=== PATIENT | female | born 1960 | race Caucasian/White ===

== ENCOUNTER 2016-06-02 08:49 | Day surgery (SDC) | payer OTHER ==
[2016-05-23 11:03] VITALS: BMI 33.0
--- NOTE | 2016-05-23 11:56 | PAT Medication Instructions ---
Service Date May 23, 2016. Current Home Medication List Anastrozole (Arimidex), 1 MG PO QAM Bosutinib (Bosulif), 100 MG PO BID Carvedilol (Coreg), 6.25 MG PO BID Clonazepam (Klonopin), 2 MG PO BID Fenofibrate (Tricor ), 145 MG PO HS Lisinopril (Zestril), 10 MG PO QAM Metformin Hcl (Glucophage), 500 MG PO QPM Nitroglycerin (Nitrostat), 0.4 MG UT PRN Oxycodone/Acetaminophen 5MG/325MG (Percocet 5MG/325MG), 1 TABLET PO QID Oxygen (Oxygen), 2.5 LITERS NA CONT Prasugrel Hcl (Effient), 10 MG PO QAM Ranitidine (Zantac), 150 MG PO BID Sertraline (Zoloft), 100 MG PO HS Venlafaxine Hcl (Effexor Xr), 1 CAP PO QAM Medication Instructions For Your Scheduled Surgery - Check with surgeon/prescribing physician for instructions: Anastrozole (Arimidex), 1 MG PO QAM Prasugrel Hcl (Effient), 10 MG PO QAM Bosutinib (Bosulif), 100 MG PO BID - Hold the following medications 48 hours prior to surgery: Metformin Hcl (Glucophage), 500 MG PO QPM - Hold the following medications the morning of surgery: Lisinopril (Zestril), 10 MG PO QAM - Take the following medications the morning of surgery with a sip of water ( OTHERWISE NOTHING TO EAT OR DRINK AFTER MIDNIGHT) Venlafaxine Hcl (Effexor Xr), 1 CAP PO QAM Ranitidine (Zantac), 150 MG PO BID Oxycodone/Acetaminophen 5MG/325MG (Percocet 5MG/325MG), 1 TABLET PO QID (okay to take up to 4 hours prior to surgery if needed) Clonazepam (Klonopin), 2 MG PO BID Carvedilol (Coreg), 6.25 MG PO BID Nitroglycerin (Nitrostat), 0.4 MG UT PRN Oxygen (Oxygen), 2.5 LITERS NA CONT - Hold the following medications as scheduled the night before surgery: Fenofibrate (Tricor ), 145 MG PO HS - Take the following medications as scheduled the night before surgery: Sertraline (Zoloft), 100 MG PO HS Ranitidine (Zantac), 150 MG PO BID Oxycodone/Acetaminophen 5MG/325MG (Percocet 5MG/325MG), 1 TABLET PO QID Clonazepam (Klonopin), 2 MG PO BID Carvedilol (Coreg), 6.25 MG PO BID Nitroglycerin (Nitrostat), 0.4 MG UT PRN Oxygen (Oxygen), 2.5 LITERS NA CONT If you have any questions please call us at [phone] (Billie Bauer PA-C) or [phone] or [phone]
[2016-05-23 12:37] LABS: BASO % 0.3 %; BASO ABS # 0.03 K/uL (0-0.2); COMPLETE YES; EOS % 1.1 %; IG% 0.2 %; LYMPH % 18.8 %; LYMPH ABS # 1.94 K/uL (1.2-3.4); MEAN CELL VOLUME 96.5 fL (80-100); MEAN CORPUSCULAR HEMOGLOBIN 31.3 pg (25-34); MEAN CORPUSCULAR HGB CONC 32.4 g/dl (32-36); MEAN PLATELET VOLUME 11.6 fL (7.4-10.4); MONO % 10.7 %; NEUT % 68.9 %; PLATELET COUNT 196 K/uL (130-400); RED BLOOD COUNT 4.25 M/uL (4.2-5.4); WHITE BLOOD COUNT 10.32 K/uL (4.8-10.8)
[2016-05-23 12:43] LABS: URINE APPEARANCE CLEAR (CLEAR); URINE BILIRUBIN NEG (NEG); URINE COLOR YELLOW; URINE EPITHELIAL CELL AUTO 0-5 /lpf (0-5); URINE NITRITE NEG (NEG); URINE SPECIFIC GRAVITY 1.019 (1.000-1.030); UROBILINOGEN NEG (NEG)
[2016-05-23 12:44] LABS: MANUAL MICROSCOPIC REQUIRED? NO; REVIEW REQ? NO
[2016-05-23 12:55] LABS: INR 1.3 (0.9-1.1); PARTIAL THROMBOPLASTIN RATIO 1.1; PROTHROMBIN TIME (PATIENT) 14.6 SECONDS (9.0-12.0)
[2016-05-23 14:02] LABS: CALCIUM 8.9 mg/dl (8.5-10.1); POTASSIUM 4.2 mmol/L (3.5-5.1)
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
[~2016-06-02] VITALS: Ht 167.6 cm; Wt 91.4 kg
[~2016-06-02 08:49] MED LIST: ANAS1TAB19 PO; CARV6.25 PO; CEFAZOLIN 2000 MG/60 ML D5W 60 ML IV SCH; CLON2TAB3 PO; FENO145T26 PO; GLC/500 PO; LACTATED RINGER'S 1000ML 1,000 ML IV SCH; LISI-461 PO; NSS 1000ML IV SCH; NTRGSL/4 UT; OXGN; OXYC-57 PO; PRAS1TAB6 PO; SERT-234 PO; VENL1CAP92 PO; ZNTT/150 PO; [UNRECOGNIZED DRUG - CODE] PO
[2016-06-02] MEDS ORDERED: FLUMAZENIL 0.1 MG/1 ML 10 ML VIAL IV PRN (10:00)
[2016-06-02] MEDS ORDERED: HYDROmorphone INJ 2 MG/ML SYR/VIAL IV PRN (10:00)
[2016-06-02] MEDS ORDERED: NALOXONE HCL 0.4 MG/1 ML VIAL/CARP IV PRN (10:00)
[2016-06-02] MEDS ORDERED: ATROPINE SULFATE 0.1 MG/ML 5ML SYR IV PRN (10:00)
[2016-06-02] MEDS ORDERED: PHENYLEPHRINE 100MCG/ML 5ML SYR IV PRN (10:00)
[2016-06-02] MEDS ORDERED: EpHEDrine SULFATE INJ 50 MG/ML AMP IV PRN (10:00)
[2016-06-02] MEDS ORDERED: MEPERIDINE HCL 25 MG/ML CARP IV PRN (10:00)
[2016-06-02] MEDS ORDERED: FENTANYL CITRATE INJ 50 MCG/1 ML 2 ML VIAL IV PRN (10:00)
[2016-06-02] MEDS ORDERED: ONDANSETRON INJ 2 MG/ML 2 ML VIAL IV PRN ×2 (10:00→14:15)
[2016-06-02] MEDS ORDERED: LABETALOL HCL IV 5 MG/ML 20ML IV PRN (10:00)
[2016-06-02] MEDS ORDERED: PROPOFOL IV EMULSION 10 MG/ML 20 ML VIAL IV ONE ×2 (10:27→10:28)
[2016-06-02] MEDS ORDERED: LIDOCAINE HCL 2% 2 ML VIAL (20MG/ML) ONE (10:27)
[2016-06-02] MEDS ORDERED: MIDAZOLAM HCL 1 MG/ML 2ML VIAL ONE ×2 (10:27→10:28)
[2016-06-02] MEDS ORDERED: FENTANYL CITRATE INJ 50 MCG/1 ML 2 ML VIAL ONE (10:28)
[2016-06-02 10:40] VITALS: BP 128/92; PULSE 71; TEMP 36.8; O2SAT 99; Ht 167.6 cm; Wt 91.4 kg
[2016-06-02] MEDS ORDERED: KETAMINE HCL INJ 50 MG/ML 10 ML VIAL ONE (12:19)
--- NOTE | 2016-06-02 12:40 | History & Physical Bridge Note ---
H&P Re-Evaluation Bridge Note: I have examined the patient, reviewed the History & Physical and in the interval since the performance of the History & Physical I have noted the following changes of clinical significance: No changes noted
[2016-06-02] MEDS ORDERED: BUPIVACAINE/EPINEPHRINE 0.5% MPF 1:200,000 30 ML VIAL INJ ONE (13:55)
[2016-06-02] MEDS ORDERED: LIDOCAINE HCL 1% MPF 5 ML VIAL INJ ONE (14:05)
[2016-06-02] MEDS ORDERED: SODIUM CHLORIDE 0.9% 1000ML 1,000 ML IV SCH (14:10)
[2016-06-02] MEDS ORDERED: HYDR-5688 PO (14:13)
[2016-06-02] MEDS ORDERED: OXYCODONE/ACETAMINOPHEN 5-325 TAB PO PRN ×2 (14:15)
--- NOTE | 2016-06-02 14:15 | Discharge Instructions ---
Discharge Instructions Admission Reason for Admission: Compression Fracture L4 & L2 Discharge Discharge Diagnosis / Problem: SAME ABOVE Discharge Goals Goal(s): Decrease discomfort, Improve function Activity Recommendations Activity Limitations: as noted below Lifting Limitations: gradually increase as tolerated Exercise/Sports Limitations: until after follow-up appointment Shower/Bathe: tomorrow . Instructions / Follow-Up Instructions / Follow-Up MEDICATIONS: Please take your prescriptions as instructed at your pre-op appointment. SPECIAL CARE: The following information is intended to answer some of the common questions and concerns regarding your surgery. Each patient is an individual and receives individual counselling throughout the course of treatment, from diagnosis to surgery all the way through recovery. What follows is not an exhaustive list, but should be a useful guide to some of the common questions and concerns patients have regarding their surgeries. These are not provided to keep you from calling us; rather, they give you something accurate and concrete to reference as you recover from your procedure. If you need us, we are available to you. As always, if you are not sure about something, call us at [phone]. MEDICAL EMERGENCIES: For these conditions, call 911 or go to your local hospital-based Emergency Department - not [facility] or equivalent. * Paralysis * Severe chest pain or difficulty breathing * Swelling or redness of either leg Spine procedures can be rather complex and though complications are rare, they do occur. In such cases, effective advice regarding emergency situations cannot always be addressed over the telephone. You may be referred to the emergency department for more effective management of your problem. Activity Limitations: It is important to give your body time to heal, so please limit your activities : * In general, don't do anything that moves your spine too much. You should avoid contact sports, twisting or heavy lifting while you recover. * 5-10 pounds is all you should attempt to lift. * You should not plan on driving for approximately 3 weeks and you should avoid traveling more than 30-45 minutes at a time. Longer trips should be broken down with walking breaks spaced appropriately. * Physical therapy is not usually required. * Walking and good posture practices will help you recover and regain your function. * Avoid straining or sudden changes in position. * In general, the goal is to take it easy and recover. Don't cause any new problems. Just relax. Showers: * Do not take a bath, use a Jacuzzi or hot tub or otherwise submerge your incision. * It is usually safe to take a shower 4-5 days after your surgery. * Your incision does not require any special creams or ointments. * Simply clean it with soap and water, dry and re-dress with a clean bandage afterwards. Incision: * Keep incision clean, dry and protected until your first follow-up appointment. * Some amount of drainage and redness is normal. Any drainage should be fairly clear and not have a foul odor. * If you feel anything is wrong or you have excessive drainage, please call us. * Your stitches and kalyan will be removed 10-14 days after your surgery. At the time of your first post-op visit. * Neck surgeries are typically closed with a suture underneath the skin. The steri-strips over the incision should be maintained until we see you in the office. Bracing: * You may be provided with a back or neck brace to encourage good posture and prevent injury. It will remind you not to do too much as you heal and will alert others to the fact that you have had a surgery. * Back braces may be removed for showers and when you are resting at home. They must be worn when you are walking around for any period of time or for travel. * For neck surgery, you will likely be provided with two cervical collars. The soft collar ([place] or foam rubber) is worn most commonly throughout the day and while sleeping. The plastic collar (provided at the hospital) is for showering/bathing. * Except while eating, collars should remain in place. More specifically, bracing is provided for a purpose and should be worn. * Please obtain your brace or collars prior to your operation and bring them to the hospital with you on the day of surgery. * You should also bring your collars to your post-op appointment with Dr. Saenz. You should always take good care of your body and practice healthy habits, especially following surgery. You should: * Follow your doctor's treatment plan * Sit and stand properly with good posture (ears over shoulders, shoulders over hips) Don't slouch * Learn to lift correctly * Exercise regularly (low-impact aerobic exercise is especially good, but check with your doctor first) * Generally, be up and walking for 5-10 minutes at a time at least 3-4 times per day from the day you get home * Increasing walking to tolerance until you can walk for 20-30 minutes at a time * Attain and maintain a healthy body weight * Eat healthy foods ( a well-balanced, low-fat diet rich in fruits and vegetables) and get enough calcium * Avoid excessive use of alcohol When to call our office - If you notice any of the following: * Increased pain not relieve by pain medicine * Fevers greater then 100 degrees F, chills or flu symptoms * Increased redness around incision * Drainage from the incision that is not clear * Any foul smelling drainage * Swelling or fluid collection beneath the skin Miscellaneous: * In the hospital, you may be given a walker or cane for support while walking. These are temporary needs and are intended to prevent injuries due to falls. You may discontinue them when you feel strong and steady enough on your feet. * Sleep in a comfortable position. We find that many patients find a lounge chair or recliner with several pillows to be beneficial in the early post-operative period. * The support stockings should be used for 7-10 days and may be discontinued when you are back to walking more and conducting usual household activities. No problem is insignificant. We are here to help you and get you well. Contact us at [phone]. Definitions: Foraminotomy: If part of the disc or a bone spur (osteophyte) is pressing on a nerve as it leaves the vertebra (through an exit called the foramen), a foraminotomy may be done. Otomy means "to make an opening." A foraminotomy is making the opening of the foramen larger, so the nerve can exit without being compressed. Laminotomy: Similar to the foraminotomy, a laminotomy makes a larger opening, this time in your bony plate protecting your spinal canal and spinal cord (the lamina). The lamina may be pressing on your nerve, so the surgeon may make more room for the nerves using a laminotomy. Laminectomy: Sometimes, a laminotomy is not sufficient. The surgeon may need to remove all or part of the lamina. This procedure is called a laminectomy. This can often be done at many levels without any harmful effects. Current Hospital Diet Patient's current hospital diet: Discharge Diet Recommended Diet: Regular Diet Procedures Procedures Performed: L4 Kyphoplasty Pending Studies Studies pending at discharge: no Medical Emergencies . Who to Call and When: Medical Emergencies: If at any time you feel your situation is an emergency, please call 911 immediately. . Non-Emergent Contact Non-Emergency issues call your: Primary Care Provider . "Provider Documentation" section prepared by Jaskaran Davidson. VTE Core Measure Inpt VTE Proph given/why not?: Treatment not indicated
--- NOTE | 2016-06-02 14:17 | [facility] Post Operative Brief Note ---
Immediate Operative Summary Operative Date Jun 02, 2016. Pre-Operative Diagnosis Compression fracture L4 Post-Operative Diagnosis Comopression Fracture L4 Procedure(s) Performed L4 Kyphoplasty Surgeon Dr. Saenz Pit Operator Surgeon(s) POONAM Carroll Estimated Blood Loss 10ml Findings compression fracture Specimens none per surgeon Complication(s) None Disposition Recovery Room / PACU
--- NOTE | 2016-06-02 14:34 | DIAGNOSTIC IMAGING REPORT ---
INTRAOPERATIVE RADIOGRAPHS CLINICAL HISTORY: L4 kyphoplasty. Fluoroscopy time: 93 seconds. FINDINGS: 2 spot fluoroscopic views of the lumbar spine are presented. There is evidence of kyphoplasty at L4. A small amount of cement is extruded inferiorly into the L4-L5 disc space. No cement is seen within the central canal. IMPRESSION: Intraoperative images from L4 kyphoplasty as above. See operative report for detailed findings. Electronically signed by: Roderick Olivares M.D. 06/02/2016 2:33 PM Dictated Date/Time: 06/02/2016 2:31 PM
--- NOTE | 2016-06-02 14:46 | Anesthesiology Progress Note ---
Anesthesia Post Op Note Date & Time Jun 02, 2016 at 14:47 Vital Signs Pain Intensity: 0 Vital Signs Past 12 Hours Date Time Temp Pulse Resp B/P Pulse Ox O2 Delivery O2 Flow Rate FiO2 06/02/16 14:38 121/76 06/02/16 14:37 36.9 74 17 121/76 95 Nasal Cannula 2 06/02/16 14:35 78 17 06/02/16 14:35 74 17 96 06/02/16 14:33 137/97 06/02/16 14:30 76 25 06/02/16 14:30 76 25 96 06/02/16 14:29 75 17 06/02/16 14:29 75 17 126/94 96 06/02/16 14:24 76 18 96 06/02/16 14:24 76 18 06/02/16 14:23 147/124 06/02/16 14:19 76 16 06/02/16 14:19 76 16 96 06/02/16 14:18 136/91 06/02/16 14:14 75 17 06/02/16 14:14 76 17 96 06/02/16 14:13 142/97 06/02/16 14:09 76 15 06/02/16 14:09 76 15 94 06/02/16 14:09 36.6 78 16 136/101 96 Nasal Cannula 2 06/02/16 10:40 36.8 71 18 128/92 99 Nasal Cannula 2.5 Notes Mental Status: alert / awake / arousable, participated in evaluation Pt Amnestic to Procedure: Yes Nausea / Vomiting: adequately controlled Pain: adequately controlled Airway Patency, RR, SpO2: stable & adequate BP & HR: stable & adequate Hydration State: stable & adequate Anesthetic Complications: no major complications apparent
--- NOTE | 2016-06-02 14:46 | OPERATIVE REPORT ---
DATE OF OPERATION: 06/02/2016 PREOPERATIVE DIAGNOSIS: Osteoporotic compression fracture L4. POSTOPERATIVE DIAGNOSIS: Same. PROCEDURE: Kyphoplasty L4 vertebrae. SURGEON: Dr. Saenz. SENIOR CONTRACTS ADMINISTRATOR: Jaskaran Davidson PA-C. COMPLICATIONS: Zero. BLOOD LOSS: 10 mL DESCRIPTION OF PROCEDURE: The patient was taken to the main surgical suite, prepped and draped sterile. We used 2 types of x-ray AP and lateral. We zoned in on the pedicle of L4, was able to engage the pedicle with the trocar and the drill, I was pleased with the positioning. We inflated each side with a balloon for the kyphoplasty procedure. Approximately 3 mL or mm of volume in approximately 2-250 pounds per square inch of pressure. The balloons were withdrawn. The methylmethacrylate placed with nice fill of the vertebrae. We irrigated and closed with 3-0 nylon in suture. Sterile dressing applied. The patient returned to PACU stable. There were no complications. We will be discharging the patient home later on today. I attest to the content of the Intraoperative Record and any orders documented therein. Any exceptio ns are noted below.
[2016-06-02 14:55] VITALS: TEMP 36.9
[2016-06-02 15:25] VITALS: BP 103/66; PULSE 75; O2SAT 97
== END 2016-06-02 16:15 | disposition home or self-care (01) ==
LOC: C.ACU 08:49
PROVIDERS: ATTEND Orthopaedic Surgery Orthopaedic Surgery of the Spine
DX: M80.08XA Age-related osteoporosis with current pathological fracture, vertebra(e), initial encounter for fracture (principal); I51.9 Heart disease, unspecified; C95.90 Leukemia, unspecified not having achieved remission; E11.9 Type 2 diabetes mellitus without complications; Z87.891 Personal history of nicotine dependence; Z85.3 Personal history of malignant neoplasm of breast; Z90.10 Acquired absence of unspecified breast and nipple; Z90.49 Acquired absence of other specified parts of digestive tract; Z88.8 Allergy status to other drugs, medicaments and biological substances; Z95.5 Presence of coronary angioplasty implant and graft